=== PATIENT | female | born 1995 | race Caucasian/White ===

== ENCOUNTER 2021-09-23 06:15 | Emergency (ER) | payer MEDICAID ==
[~2021-09-23] VITALS: Ht 157.5 cm; Wt 74.8 kg
--- NOTE | 2021-09-23 06:25 | NUR ---
Patient placed in bed 6, with daughter, waiting for provider. Ambulated without issue. Per patient, patient has had left ear ache x 1 day. No fever or other symptoms.
[2021-09-23 06:29] VITALS: BP_SYST 125
--- NOTE | 2021-09-23 06:35 | NUR ---
BIB AMB WITH TRIAGE NURSE. C/O LEFT EAR PAIN X1 DAY. PAIN LEVAL 06/25. USED OTC MEDS WITHOUT RELIEF. DENIES FEVER/ N/V/D
--- NOTE | 2021-09-23 06:49 | NUR ---
DR GALLEGOS AT BEDSIDE [place]
--- NOTE | 2021-09-23 07:10 | NUR ---
PT STABLE FOR D/C TO HOME WITH FAMILY. TO LOBBY AMB WITH ALL PAPERWORK IN HAND
[2021-09-23 07:13] VITALS: BP_SYST 125
== END 2021-09-23 07:13 | disposition home or self-care (01) ==
LOC: SED 06:15
DX: H92.02 Otalgia, left ear (principal); R50.9 Fever, unspecified
CPT/HCPCS: 99281

== ENCOUNTER 2021-11-20 05:41 | Emergency (ER) | payer MEDICAID ==
[~2021-11-20] VITALS: Ht 157.5 cm; Wt 74.8 kg
[2021-11-20 05:45] VITALS: BP_SYST 117
--- NOTE | 2021-11-20 05:47 | NUR ---
HISTORY OF HEP C, PATIENT STATES UPPER RIGHT QUADRANT PAIN INCREASINGLY WORSE FOR THE PAST FEW MONTHS AND STATES WHEN SHE HAS HAD A FLAIR UP, THIS HAPPENS.
--- NOTE | 2021-11-20 06:15 | NUR ---
Patient to ER bed 05 to gown for evaluation. Side rails up.
[2021-11-20] MEDS ORDERED: ACETAMINOPHEN 325 MG TABLET PO ONE ×2 (06:45→07:00)
--- NOTE | 2021-11-20 06:45 | NUR ---
Dr. Montelongo at bedside with patient for evaluation.
--- NOTE | 2021-11-20 06:50 | NUR ---
Urine collected and sent to lab.
--- NOTE | 2021-11-20 07:13 | NUR ---
Report given to Arnaldo RN to assume care, all questions and concerns addressed at this point.
[2021-11-20 07:20] LABS: BILIRUBIN,URINE NEGATIVE (NEGATIVE); BLOOD, URINE NEGATIVE (NEGATIVE); CLARITY/URINE CLEAR (CLEAR); COLOR,URINE YELLOW (YELLOW); GLUCOSE,URINE NEGATIVE (NEGATIVE); KETONES,URINE NEGATIVE (NEGATIVE); LEUKOCYTE ESTERASE ,URINE NEGATIVE (NEGATIVE); NITRITE, URINE NEGATIVE (NEGATIVE); PH,URINE 5.5 (5.0-8.0); PROTEIN URINE NEGATIVE (NEGATIVE); UROBILINOGEN,URINE 0.2 (0.2-1.0)
--- NOTE | 2021-11-20 07:23 | NUR ---
ASSUMED PATIENT CARE AAOX4 SPEECH CLEAR AND COHERENT, MOVE ALL EXTREMITIES, PATIENT TAKEN TO ULTRASOUND.
[2021-11-20 07:50] LABS: BASOPHILS % (AUTO) 0.4 % (0.0-2.0); EOSINOPHILS # (AUTO) 0.4 K/uL (0.0-0.4); EOSINOPHILS % (AUTO) 4.1 % (0.0-4.0); HEMATOCRIT 42.5 % (36-48); HEMOGLOBIN 14.7 g/dL (12.0-16.0); LYMPHOCYTES # (AUTO) 2.3 K/uL (1.0-5.5); LYMPHOCYTES % (AUTO) 25.2 % (20.5-51.5); MEAN CORPUSCULAR HEMOGLOBIN 30 pg (27-31); MEAN CORPUSCULAR HGB CONC 35 % (32-36); MEAN CORPUSCULAR VOLUME 86 fL (79.0-98.0); MONOCYTES # (AUTO) 0.5 K/uL (0.0-1.0); MONOCYTES % (AUTO) 5.7 % (1.7-9.3); NEUTROPHILS # (AUTO) 5.9 K/uL (1.8-7.7); NEUTROPHILS % (AUTO) 64.6 % (40.0-70.0); PLATELET COUNT (AUTO) 293 K/uL (130-430); RED BLOOD CELL COUNT(AUTO) 4.92 MIL/uL (4.2-6.2); WHITE BLOOD COUNT (AUTO) 9.2 K/uL (4.8-10.8)
--- NOTE | 2021-11-20 07:57 | NUR ---
PATIENT STEPS OUT TO HER CAR TO COME BACK, AWAITING FOR RESULT, FOR DISPOSITION.
--- NOTE | 2021-11-20 08:00 | NUR ---
PATIENT RETURN TO ER TO ROOM 5 AND STATED SHE WILL WANT TO LEAVE.
[2021-11-20 08:13] LABS: CALCIUM 9.2 mg/dL (8.4-11.0); CREATININE 0.6 mg/dL (0.55-1.30); POTASSIUM 4.2 mmol/L (3.5-5.1)
--- NOTE | 2021-11-20 08:15 | NUR ---
Pt eloped from ER
[2021-11-20 08:20] VITALS: BP_SYST 117
[2021-11-20 08:31] LABS: ALBUMIN 3.5 g/dL (3.4-4.8); TOTAL BILIRUBIN 0.4 mg/dL (0.0-1.0)
== END 2021-11-20 08:20 | disposition left against medical advice (07) ==
LOC: SED 05:41
DX: R10.11 Right upper quadrant pain (principal); Z79.899 Other long term (current) drug therapy
CPT/HCPCS: 36415; 76705; 80053; 81003; 81025; 83690; 85025; 99284